=== PATIENT | male | born 1945 | race Caucasian/White ===

== ENCOUNTER → 2018-04-15 | Outpatient (CLI) | payer MEDICARE, OTHER ==
[~2018-04-15] MED LIST: ALB18R INH; AMOX-556 PO; FINA5TAB67 PO; GUAI120L3 PO; LEVO-3 PO; PRA20 PO; PRAV40TA78 PO; PRED20TA6 PO; TAMS0.4C25 PO
[2018-04-15 10:35] LABS: PLATELET COUNT, AUTOMATED 121 K/uL (150-450)
[2018-04-15 10:53] LABS: LDL CHOLESTEROL 68 mg/dl
--- NOTE | 2018-04-15 12:41 | EKG ---
FACILITY: [facility] - [place], [place] PATIENT NAME: BASIM COOMBS : [id number] MR: [id number]: [id number] EXAM DATE: ORDERING PHYSICIAN: QUYNH HERNANDEZ TECHNOLOGIST: CYNTHIA Mccrary Reason : VICTORIA CARDIA Blood Pressure : / mmHG Vent. Rate : 038 BPM Atrial Rate : 038 BPM P-R Int : 170 ms QRS Dur : 088 ms QT Int : 496 ms P-R-T Axes : 053 032 043 degrees QTc Int : 394 ms Marked sinus bradycardia No ST-T abnormalities No previous ECGs available Confirmed by ANNA GONZLAEZ ([id number]) on 04/15/2018 8:44:31 PM Referred By: LATRICE Confirmed By:ANNA GONZALEZ
== END ==
LOC: LAB 10:12
PROVIDERS: ATTEND Internal Medicine
DX: Z12.5 Encounter for screening for malignant neoplasm of prostate (principal); E78.5 Hyperlipidemia, unspecified; E03.9 Hypothyroidism, unspecified; N40.0 Benign prostatic hyperplasia without lower urinary tract symptoms
CPT/HCPCS: 36415; 81001; 83036; 84443; 85025; G0103; 82040; 82247; 82310; 82374; 82435; 82465; 82565; 82947; 83718; 84075; 84132; 84153; 84155; 84295; 84450; 84460; 84478; 84520

== ENCOUNTER → 2018-04-18 | Outpatient (CLI) | payer MEDICARE, OTHER | LOC: LAB 08:18 | PROVIDERS: ATTEND Urology | DX: R97.20 Elevated prostate specific antigen [PSA] (principal) | CPT/HCPCS: 36415; 84154 ==

== ENCOUNTER → 2018-04-25 | Outpatient (REF) | payer MEDICARE, OTHER | LOC: ZZSENDIN 14:03 | PROVIDERS: ATTEND Urology | DX: N41.1 Chronic prostatitis (principal) | CPT/HCPCS: 88305; 88344 ==

== ENCOUNTER → 2018-08-05 | Outpatient (CLI) | payer MEDICARE, OTHER | LOC: LAB 08:29 | PROVIDERS: ATTEND Urology | DX: R97.20 Elevated prostate specific antigen [PSA] (principal) | CPT/HCPCS: 36415; 84153 ==

== ENCOUNTER → 2018-12-09 | Outpatient (CLI) | payer MEDICARE, OTHER | LOC: LAB 12:34 | PROVIDERS: ATTEND Urology | DX: R97.20 Elevated prostate specific antigen [PSA] (principal) | CPT/HCPCS: 36415; 84153 ==